=== PATIENT | female | born 1985 | race African-American/Black ===

== ENCOUNTER 2017-03-03 18:40 | Emergency (ER) | payer OTHER ==
[~2017-03-03] VITALS: Ht 177.8 cm; Wt 127.0 kg
[~2017-03-03 18:40] MED LIST: CEFDINIR300 MG PO; IBUPROFEN 800800 M1 PO; MACROBID 100 M100 M1 PO; NOHOMEMEDICATIONS; NORCO 5-325 TA1 EACH PO; NORFLEX100 MG PO; PHENERGAN 25 MG25 M1 PO; ROBAXIN 750 MG750 M1 PO; TRAMADOL 50 MG50 MG PO
[2017-03-03 18:49] VITALS: BP 135/93
[2017-03-03] MEDS ORDERED: NAPROSYN500 MG PO (19:10)
[2017-03-03] MEDS ORDERED: ULTRAM 50MG TAB50 MG PO (19:10)
== END 2017-03-03 19:19 | disposition home or self-care (01) ==
LOC: ER 18:40
DX: M25.461 Effusion, right knee (principal); J45.909 Unspecified asthma, uncomplicated; I10 Essential (primary) hypertension; F17.210 Nicotine dependence, cigarettes, uncomplicated; F10.99 Alcohol use, unspecified with unspecified alcohol-induced disorder; Z88.1 Allergy status to other antibiotic agents; Z98.890 Other specified postprocedural states

== ENCOUNTER → 2017-04-23 | Outpatient (CLI) | payer OTHER ==
[~2017-04-23] MED LIST changes: +NAPROSYN500 MG PO; +ULTRAM 50MG TAB50 MG PO
== END ==
LOC: RAD 16:08
DX: M25.561 Pain in right knee (principal)

== ENCOUNTER → 2017-05-21 | Outpatient (CLI) | payer OTHER | LOC: MRI 05-16 09:58 | DX: M25.561 Pain in right knee (principal) ==

== ENCOUNTER 2020-03-06 18:53 | Emergency (ER) | payer OTHER ==
[~2020-03-06] VITALS: Ht 177.8 cm; Wt 127.0 kg
[~2020-03-06 18:53] MED LIST changes: +AMITRIPTYLINE H25 M2 PO; +HYDROCHLOROTHIA25 M1 PO; +PREDNISONE 20 M20 MG PO; +PROMETHAZINE/C118 ML PO; +SEROQUEL 50 MG50 MG PO; +ZANAFLEX4 MG PO; +ZPAK PO
[2020-03-06] MEDS ORDERED: NORVASC 2.5 MG2.5 M1 PO (19:42)
[2020-03-06] MEDS ORDERED: COZAAR 25 MG TA25 M2 PO (19:43)
[2020-03-06 23:04] VITALS: BP 130/82
[2020-03-06] MEDS ORDERED: BUTALB-APAP-CA1 EACH PO (23:07)
== END 2020-03-06 23:22 | disposition home or self-care (01) ==
LOC: ER 18:53
DX: R51 Headache (principal); H53.149 Visual discomfort, unspecified; H53.8 Other visual disturbances; J02.9 Acute pharyngitis, unspecified; I10 Essential (primary) hypertension; J45.909 Unspecified asthma, uncomplicated; F17.210 Nicotine dependence, cigarettes, uncomplicated; Z79.899 Other long term (current) drug therapy; Z88.1 Allergy status to other antibiotic agents; Z88.8 Allergy status to other drugs, medicaments and biological substances

== ENCOUNTER 2021-07-20 09:41 | Emergency (ER) | payer OTHER ==
[~2021-07-20] VITALS: Ht 177.8 cm; Wt 120.2 kg
[~2021-07-20 09:41] MED LIST changes: +BUTALB-APAP-CA1 EACH PO; +COZAAR 25 MG TA25 M2 PO; +NORVASC 2.5 MG2.5 M1 PO
[2021-07-20 09:53] VITALS: BP 134/88
[2021-07-20] MEDS ORDERED: ATORVASTATIN CA20 MG PO (09:58)
[2021-07-20] MEDS ORDERED: AIMOVIG AU140 MG/1 M SUBQ (09:58)
[2021-07-20] MEDS ORDERED: TOPAMAX 100 MG100 MG PO (09:59)
[2021-07-20] MEDS ORDERED: TRIAMTERENE-HC1 EAC2 PO (10:00)
[2021-07-20] MEDS ORDERED: PREDNISONE 20 M20 MG PO (11:09)
[2021-07-20] MEDS ORDERED: AZITHROMYCIN 2250 MG PO (11:09)
== END 2021-07-20 11:30 | disposition home or self-care (01) ==
LOC: ER 09:41
PROVIDERS: Emergency Medicine
DX: U07.1 COVID-19 (principal); J40 Bronchitis, not specified as acute or chronic; I10 Essential (primary) hypertension; F17.210 Nicotine dependence, cigarettes, uncomplicated; Z79.899 Other long term (current) drug therapy; Z88.0 Allergy status to penicillin